=== PATIENT | male | born 1990 | race Caucasian/White ===

== ENCOUNTER 2017-05-30 11:46 | Emergency (ER) | payer MEDICAID ==
[2017-05-30 12:21] LABS: PLATELET COUNT 369 10^3/uL (150-400)
[2017-05-30] MEDS ORDERED: NS 1,000 ML IV ONE (12:34)
[2017-05-30] MEDS ORDERED: LORazepam 2 MG/ML INJ IVP ONE (12:34)
--- NOTE | 2017-05-30 12:36 | EDPHY ---
H & P Stated Complaint: l sided abd pain/acute this morning/nausea Time Seen by Provider: 05/30/17 12:30 HPI/ROS: CHIEF COMPLAINT: Epigastric and left upper quadrant abdominal pain HISTORY OF PRESENT ILLNESS: 26-year-old homeless male awoke this morning with acute sharp epigastric and left upper quadrant abdominal pain with nausea and vomiting. In effort to alleviate his symptoms he used IV methamphetamine which provided moderate relief, sufficient for him to walk to the hospital. He is still complaining of significant pain. No trauma. No testicular pain. No back or flank pain. No dyspnea. No melena or hematochezia REVIEW OF SYSTEMS: A ten point review of systems was performed and is negative with the exception of the items mentioned in the HPI PAST MEDICAL & SURGICAL HISTORY: No pertinent medical or surgical history SOCIAL HISTORY:Positive for IV methamphetamine and heroin use. Homelessness. PHYSICAL EXAM (Prior to examination, patient consented to physical exam, hands were washed and my usual and customary physical exam procedures followed) 1) GENERAL: Well-developed, well-nourished, alert and oriented. Appears uncomfortable. 2) HEAD: Normocephalic, atraumatic 3) HEENT: Pupils equal, round, reactive to light bilaterally. Sclera anicteric. [Nasopharynx, oropharynx, clear, no lesions. Dry mucous membranes 4) NECK: Full range of motion, no meningeal signs. 5) LUNGS: Clear auscultation bilaterally, no wheezes, no rhonchi, no retractions. 6) HEART: Regular rate and rhythm, no murmur, no heave, no gallop. 7) ABDOMEN: tender to palpation epigastrium and left upper quadrant, no focal tenderness, negative McBurney's, negative Daily's, negative Rovsing's, negative peritoneal sign, 8) MUSCULOSKELETAL: Moving all extremities, no focal areas of tenderness, no obvious trauma. No peripheral edema or discoloration. 9) BACK: No CVA tenderness, no midline vertebral tenderness, no fluctuance, no step-off, no obvious trauma, no visual or palpable abnormality. 10) SKIN: No rash, no petechiae. 11) : Normal male external genitalia bilateral testicles nontender no high- riding testicle, bilateral cremasteric reflex present and brisk. DIFFERENTIAL DIAGNOSIS: My differential diagnosis includes, but is not limited to, acute appendicitis, acute cholecystitis, bowel obstruction, acute pancreatitis, testicular torsion, gastritis. The patient understands that this diagnosis is provisional and can never be 100% accurate. This is a partial list of diagnoses considered. These considerations are based on history, physical exam, past history and reassessment. - Personal History Current Tetanus/Diphtheria Vaccine: Yes - Medical/Surgical History Hx Asthma: No Hx Chronic Respiratory Disease: No Hx Diabetes: No Hx Cardiac Disease: No Hx Renal Disease: No Hx Cirrhosis: No Hx Alcoholism: No Hx HIV/AIDS: No Hx Splenectomy or Spleen Trauma: No Other PMH: endocarditis - Social History Smoking Status: Current every day smoker Constitutional: Initial Vital Signs Temperature (C) 36.5 C 05/30/17 11:49 Heart Rate 67 05/30/17 11:49 Respiratory Rate 18 05/30/17 11:49 Blood Pressure 115/78 05/30/17 11:49 O2 Sat (%) 96 05/30/17 11:49 O2 Delivery Mode Room Air Allergies/Adverse Reactions: No Known Allergies Allergy (Verified 05/30/17 11:49) Home Medications: Medication Instructions Recorded Peg 3350/Na Sulf,Bicarb,Cl/KCl 1,000 ml PO ONCE #4000 ml 05/30/17 [Golytely (RX)] Medical Decision Making - Diagnostics Imaging Results: Imaging Impressions Abdomen CT 05/30/17 12:38 Impression: 1. Constipation with mild air distention of the cecum and hepatic flexure, without evidence of obstruction. 2. Small amount of free fluid in the pelvis, of unclear etiology. 3. Additional findings as above. Findings discussed with Caleb Linder, 05/30/2017 at 13:24. Images reviewed by myself ED Course/Re-evaluation: 12:35 p.m.: Will administer benzodiazepine, IV fluids he is noted to have an elevated BUN creatinine ratio. Care of patient under supervision of secondary supervising physician Dr Hines . 1:39 p.m.: Re-evaluation. Discussed his imaging results showing extensive constipation more than likely secondary to his history of chronic methamphetamine chronic care when abuse. At this time he is comfortable. Plan will be discharged with GoLYTELY. Recommend cessation of heroin and methamphetamine use. Usual customary abdominal precautions instructions provided. - Data Points Laboratory Results: Laboratory Results 05/30/17 12:10 05/30/17 12:10 05/30/17 05/30/17 05/30/17 12:13 12:10 12:10 WBC 11.90 10^3/uL H 10^3/uL (3.80-9.50) RBC 5.34 10^6/uL 10^6/uL (4.40-6.38) Hgb 15.7 g/dL g/dL (13.7-17.5) POC Hgb 16.3 gm/dL gm/dL (13.7-17.5) Hct 46.3 % % (40.0-51.0) POC Hct 48 % % (40-51) MCV 86.7 fL fL (81.5-99.8) MCH 29.4 pg pg (27.9-34.1) MCHC 33.9 g/dL g/dL (32.4-36.7) RDW 12.5 % % (11.5-15.2) Plt Count 369 10^3/uL 10^3/uL (150-400) MPV 9.3 fL fL (8.7-11.7) Neut % (Auto) 79.5 % H % (39.3-74.2) Lymph % (Auto) 12.9 % L % (15.0-45.0) Yancey % (Auto) 5.8 % % (4.5-13.0) Eos % (Auto) 1.2 % % (0.6-7.6) Baso % (Auto) 0.3 % % (0.3-1.7) Nucleat RBC Rel Count 0.0 % % (0.0-0.2) Absolute Neuts (auto) 9.48 10^3/uL H 10^3/uL (1.70-6.50) Absolute Lymphs (auto) 1.53 10^3/uL 10^3/uL (1.00-3.00) Absolute Monos (auto) 0.69 10^3/uL 10^3/uL (0.30-0.80) Absolute Eos (auto) 0.14 10^3/uL 10^3/uL (0.03-0.40) Absolute Basos (auto) 0.03 10^3/uL 10^3/uL (0.02-0.10) Absolute Nucleated RBC 0.00 10^3/uL 10^3/uL (0-0.01) Immature Gran % 0.3 % % (0.0-1.1) Immature Gran # 0.03 10^3/uL 10^3/uL (0.00-0.10) POC Sodium 143 mEq/L mEq/L (135-145) Sodium 143 mEq/L mEq/L (135-145) POC Potassium 4.2 mEq/L mEq/L (3.3-5.0) Potassium 4.6 mEq/L mEq/L (3.5-5.2) POC Chloride 105 mEq/L mEq/L (97-110) Chloride 105 mEq/L mEq/L (97-110) Carbon Dioxide 27 mEq/l mEq/l (22-31) Anion Gap 11 mEq/L mEq/L (8-16) POC BUN 25 mg/dL H mg/dL (7-23) BUN 25 mg/dL H mg/dL (7-23) Creatinine 0.7 mg/dL mg/dL (0.7-1.3) POC Creatinine 0.8 mg/dL mg/dL (0.7-1.3) Estimated GFR > 60 Glucose 102 mg/dL H mg/dL (70-100) POC Glucose 108 mg/dL H mg/dL (70-100) Calcium 9.8 mg/dL mg/dL (8.5-10.4) Total Bilirubin 0.7 mg/dL mg/dL (0.1-1.4) Conjugated Bilirubin 0.4 mg/dL mg/dL (0.0-0.5) Unconjugated Bilirubin 0.3 mg/dL mg/dL (0.0-1.1) AST 156 IU/L H IU/L (17-59) ALT 359 IU/L H IU/L (21-72) Alkaline Phosphatase 109 IU/L IU/L (38-126) Creatine Kinase 94 IU/L IU/L (0-224) Total Protein 7.8 g/dL g/dL (6.3-8.2) Albumin 4.3 g/dL g/dL (3.5-5.0) Lipase 48 IU/L IU/L (23-300) Medications Given: Discontinued Medications Sodium Chloride (Ns) 1,000 mls @ 0 mls/hr IV ONCE ONE PRN Reason: Wide Open Stop: 05/30/17 12:35 Last Admin: 05/30/17 12:40 Dose: 1,000 mls Lorazepam (Ativan Injection) 1 mg IVP EDNOW ONE Stop: 05/30/17 12:35 Last Admin: 05/30/17 12:42 Dose: Not Given Point of Care Test Results: 05/30/17 12:13 POC Sodium 143 POC Potassium 4.2 POC Chloride 105 POC BUN 25 H POC Creatinine 0.8 POC Glucose 108 H Departure - Departure Disposition: Home, Routine, Self-Care Clinical Impression: Methamphetamine abuse, Heroin abuse Constipation Qualifiers: Constipation type: unspecified constipation type Qualified Code(s): K59.00 - Constipation, unspecified Condition: Good Instructions: Constipation (ED) Additional Instructions: Please stop using methamphetamine and heroin. Referrals: [facility],. [Clinic] - 1-2 days without fail Prescriptions: Peg 3350/Na Sulf,Bicarb,Cl/KCl [Golytely (RX)] 1,000 ml PO ONCE #4000 ml
[2017-05-30 12:48] LABS: CREATINE KINASE 94 IU/L (0-224)
[2017-05-30] MEDS ORDERED: IOPAMIDOL (ISOVUE-300) 100 ML BTL ONE (13:00)
[2017-05-30 13:58] VITALS: BP 119/74
== END 2017-05-30 13:57 | disposition home or self-care (01) ==
DX: K59.00 Constipation, unspecified (principal); F15.10 Other stimulant abuse, uncomplicated; F11.10 Opioid abuse, uncomplicated; F17.200 Nicotine dependence, unspecified, uncomplicated; R11.2 Nausea with vomiting, unspecified
CPT/HCPCS: 82947-QW; J2060; Q9967

== ENCOUNTER 2018-02-25 12:09 | Inpatient (IN) | payer MEDICAID ==
[2018-02-25] MEDS ORDERED: NS 1,000 ML IV ONE ×2 (12:34→12:46)
[2018-02-25] MEDS ORDERED: PROMETHAZINE HCL 25 MG/ML INJ IVP ONE (12:46)
[2018-02-25] MEDS ORDERED: ONDANSETRON 4 MG/2 ML VIAL IVP ONE (12:46)
[2018-02-25] MEDS ORDERED: FAMOTIDINE 20 MG/NACL 50 ML IV ONE (12:46)
--- NOTE | 2018-02-25 12:52 | EDPHY ---
H & P Time Seen by Provider: 02/25/18 12:40 HPI/ROS: HPI Abdominal pain, nausea and vomiting. 27-year-old male by ambulance. He is currently homeless. He has a history of hepatitis C and heroin abuse. Last heroin use was earlier this morning. He presents to the emergency department with complaint of abdominal pain with nausea and vomiting worsening since last night. He reports multiple episodes of nonbilious, nonbloody vomiting. He describes his abdominal pain is mostly mid abdomen and epigastric. Last meal was sometime yesterday. He reports that he has had nothing to eat today. He denies diarrhea. Last bowel movement yesterday. No bloody or melenic stool. No previous abdominal surgical history. ROS: Constitutional: No fever, no chills. No weakness. Eyes: No discharge. No changes in vision. ENT: No sore throat. No nasal congestion or rhinorrhea. Respiratory: No cough. No shortness of breath. Cardiac: No chest pain, no palpitations. Gastrointestinal: As above. Genitourinary: No hematuria. No dysuria or increased frequency with urination. Musculoskeletal: No back pain. No neck pain. No myalgias or arthralgias. Skin: No rashes. Neurological: No headache. No focal weakness or altered sensation. Past medical history: Endocarditis, hepatitis-C, heroin abuse. Social history: Smoker. As above. No alcohol. Homeless. Physical Exam: General Appearance: Sleepy but easily arousable, he appears uncomfortable. Dirty in appearance. This patient is responding to questions appropriately and in full sentences. This patient appears well-hydrated and well-nourished. Eyes: Pupils equal and round and reactive to light at 2-1 mm bilaterally, no pallor or injection. No lid edema, erythema or injection. Respiratory: There are no retractions, lungs are clear to auscultation with good air movement bilaterally. Cardiovascular: Regular rate and rhythm. No murmur. Gastrointestinal: Abdomen is soft with moderate and vague tenderness throughout , most tender in the periumbilical area, no masses, bowel sounds normal. No focal tenderness at McBurney's point. No Daily sign. Neurological: Motor sensory function is grossly intact. Cranial nerves are normal. Skin: Warm and dry, no rashes. Musculoskeletal: Neck is supple and nontender. Extremities are symmetrical. All joints range without pain or impingement. Psychiatric: No agitation. No depression. Database: EKG: Imaging: CT abdomen and pelvis with IV contrast: Portal venous pneumatosis, diffuse bowel dilatation, pneumatosis intestinalis and gastric pneumatosis, diffuse bowel dilatation/diffuse small-bowel obstruction, no obvious transition point. Results were discussed with staff radiologist Dr. Young Guadarrama Procedures: Emergency department course: Triage vital signs reviewed, he is moderately hypertensive. Vital signs are otherwise normal. IV was placed. He was placed on a monitor. He had been given 4 mg of IV Zofran per EMS. After my evaluation he received another 4 mg of IV Zofran, 20 mg of IV Pepcid and 6.25 mg of IV Phenergan. He will be started on IV normal saline with 1 to 2 L to be given over the next 1 to 2 hours. His abdominal exam is concerning, possible etiologies obtained include appendicitis and perforated peptic ulcer. CT imaging will be obtained. Patient endorses. 2:40 p.m., general surgery paged. Patient re-evaluated, results of CT imaging and need for admission discussed with him. Repeat abdominal exam at this time, soft but diffusely tender throughout. He endorses admission. 3:00 p.m., spoke with on-call general surgeon Dr. Rolando Harris. He will see this patient in the emergency department shortly. The patient will be admitted under Dr. Harris's care. The patient will be given 500 mg of IV Flagyl in 2 g of IV Mefoxin in the emergency department. 3:40 p.m., the patient has become more sleepy. He will be given 0.4 mg of IV Narcan. He awoke after this medication and became mildly agitated. I have also discussed the patient's presentation to the emergency department in condition with Dr. Mccarty for the hospitalist service. Hospitalist service will consult for treatment of heroin withdrawal and any other medical issues. Patient was admitted under the care of Dr. Harris in stable condition. Differential Diagnosis: The differential diagnosis on this patient includes but is not limited to bowel obstruction, gastritis, pancreatitis, ulcerative gastritis, appendicitis, cholecystitis. This represents a partial list of diagnoses considered. These considerations are based on history, physical exam, past history, reassessment and diagnostic testing. Smoking Status: Current every day smoker Constitutional: Initial Vital Signs Temperature (C) 36.5 C 02/25/18 12:10 Heart Rate 84 02/25/18 12:10 Respiratory Rate 16 02/25/18 12:10 Blood Pressure 145/92 H 02/25/18 12:10 O2 Sat (%) 97 02/25/18 12:10 O2 Delivery Mode Room Air Allergies/Adverse Reactions: No Known Allergies Allergy (Verified 05/30/17 11:49) Home Medications: Medication Instructions Recorded NK [No Known Home Meds] 02/25/18 Medical Decision Making - Data Points Laboratory Results: Laboratory Results 02/26/18 05:29 02/26/18 05:29 Microbiology Results: MICROBIOLOGY 02/25/18 16:31 Blood Blood Culture - Preliminary 02/25/18 21:05 Blood Blood Culture - Preliminary Medications Given: Acetaminophen (Tylenol) 1,000 mg PO Q8H SARAH Stop: 08/24/18 15:44 Last Admin: 02/27/18 12:25 Dose: Not Given Al Hydroxide/Mg Hydroxide (Maalox Susp) 30 ml PO Q4HRS PRN PRN Reason: Indigestion Stop: 08/25/18 17:37 Last Admin: 02/26/18 22:48 Dose: 30 ml Chlordiazepoxide HCl (Librium) 25 - 50 mg PO TID PRN PRN Reason: Anxiety, Able to Take PO Stop: 08/24/18 17:29 Last Admin: 02/26/18 21:00 Dose: 25 mg Clonidine (Catapres) 0.1 mg PO Q4HRS SARAH Stop: 08/24/18 17:59 Last Admin: 02/27/18 12:25 Dose: Not Given Diazepam (Valium) 5 mg PO Q6HRS PRN PRN Reason: Anxiety, Able to Take PO Stop: 08/25/18 20:34 Last Admin: 02/27/18 05:01 Dose: 5 mg Enoxaparin Sodium (Lovenox) 40 mg SC DAILY SARAH Stop: 08/25/18 08:59 Last Admin: 02/27/18 12:24 Dose: 40 mg Hydroxyzine HCl (Hydroxyzine Hcl) 25 - 50 mg PO Q6HRS PRN PRN Reason: Anxiety Stop: 08/24/18 16:50 Last Admin: 02/26/18 15:25 Dose: 50 mg Lactated Ringer's (Lr) 1,000 mls @ 100 mls/hr IV CONT SARAH Stop: 08/24/18 15:59 Last Admin: 02/27/18 12:24 Dose: 1,000 mls Dexmedetomidine HCl 400 mcg/ (Sodium Chloride) 104 mls @ 0 mls/hr IV CONT SARAH; Titrate PRN Reason: Protocol Stop: 08/25/18 22:59 Last Admin: 02/27/18 12:24 Dose: 104 mls Piperacillin/Tazobactam/Dextrose (Zosyn 3.375 Gm (Premix)) 50 mls @ 100 mls/hr IV Q6H SARAH PRN Reason: Protocol Stop: 03/29/18 08:59 Last Admin: 02/27/18 09:23 Dose: 50 mls Ketorolac Tromethamine (Toradol) 30 mg IVP Q6HRS SARAH Stop: 03/02/18 17:59 Last Admin: 02/27/18 12:25 Dose: 30 mg Lorazepam (Ativan Injection) 2 mg IVP Q4HRS PRN PRN Reason: Anxiety Stop: 08/24/18 19:45 Last Admin: 02/27/18 04:21 Dose: 2 mg Ondansetron HCl (Zofran) 4 mg IVP Q4HRS PRN PRN Reason: Nausea/Vomiting, Can't Take PO Stop: 08/24/18 17:01 Last Admin: 02/27/18 05:05 Dose: 4 mg Pantoprazole Sodium (Protonix) 40 mg PO DAILY [facility] Stop: 08/26/18 08:59 Last Admin: 02/27/18 12:24 Dose: Not Given Discontinued Medications Chlordiazepoxide HCl (Librium) 25 mg PO TID PRN PRN Reason: Anxiety, Able to Take PO Stop: 08/24/18 17:29 Last Admin: 02/26/18 19:06 Dose: 25 mg Diazepam (Valium) 10 mg IVP ONCE ONE Stop: 02/26/18 15:31 Last Admin: 02/26/18 15:53 Dose: 10 mg Sodium Chloride (Ns) 1,000 mls @ 0 mls/hr IV EDNOW ONE; Wide Open PRN Reason: Protocol Stop: 02/25/18 12:35 Last Admin: 02/25/18 12:39 Dose: 1,000 mls Sodium Chloride (Ns) 1,000 mls @ 0 mls/hr IV EDNOW ONE; Wide Open PRN Reason: Protocol Stop: 02/25/18 12:47 Last Admin: 02/25/18 13:03 Dose: 1,000 mls Famotidine/Sodium Chloride (Pepcid 20 Mg (Premix)) 50 mls @ 200 mls/hr IV EDNOW ONE Stop: 02/25/18 13:00 Last Admin: 02/25/18 13:02 Dose: 50 mls Cefoxitin Sodium 2 gm/ Sodium (Chloride) 100 mls @ 200 mls/hr IV EDNOW ONE PRN Reason: Protocol Stop: 02/25/18 16:06 Last Admin: 02/25/18 16:38 Dose: 100 mls Metronidazole/Sodium Chloride (Flagyl 500 Mg (Premix)) 100 mls @ 100 mls/hr IV EDNOW ONE PRN Reason: Protocol Stop: 02/25/18 16:36 Last Admin: 02/25/18 15:53 Dose: 100 mls Sodium Chloride (Ns) 500 mls @ 0 mls/hr IV ONCE ONE Stop: 02/26/18 07:01 Last Admin: 02/26/18 06:49 Dose: 500 mls Lorazepam (Ativan Injection) 1 mg IVP Q4HRS PRN PRN Reason: Anxiety, Unable to Take PO Stop: 08/24/18 19:45 Last Admin: 02/26/18 22:23 Dose: 1 mg Naloxone HCl (Narcan) 0.4 mg IVP EDNOW ONE Stop: 02/25/18 15:41 Last Admin: 02/25/18 15:52 Dose: 0.4 mg Ondansetron HCl (Zofran) 4 mg IVP EDNOW ONE Stop: 02/25/18 12:47 Last Admin: 02/25/18 13:03 Dose: 4 mg Pantoprazole Sodium (Protonix) 40 mg IVP DAILY SARAH Stop: 08/24/18 15:59 Last Admin: 02/26/18 09:04 Dose: 40 mg Promethazine HCl (Phenergan) 6.25 mg IVP EDNOW ONE Stop: 02/25/18 12:47 Last Admin: 02/25/18 13:03 Dose: 6.25 mg Point of Care Test Results: Chemistry 02/25/18 15:08 POC Sodium 143 mEq/L mEq/L (135-145) POC Potassium 3.7 mEq/L mEq/L (3.3-5.0) POC Chloride 105 mEq/L mEq/L (97-110) POC BUN 20 mg/dL mg/dL (7-23) POC Creatinine 0.7 mg/dL mg/dL (0.7-1.3) POC Glucose 130 mg/dL H mg/dL (70-100) ISTAT H&H 02/25/18 15:08 POC Hgb 15.6 gm/dL gm/dL (13.7-17.5) POC Hct 46 % % (40-51) Departure - Departure Disposition: [facility] Inpatient Acute Clinical Impression: Abdominal pain, Nausea and vomiting, Small bowel obstruction, Heroin abuse, Transaminitis, Pneumatosis of intestines Condition: Fair
[2018-02-25] MEDS ORDERED: IOPAMIDOL (ISOVUE 370) 100 ML BTL IV ONE (13:29)
[2018-02-25 15:17] LABS: PLATELET COUNT 300 10^3/uL (150-400)
[2018-02-25] MEDS ORDERED: cefOXitin SODIUM 2 GM in NS 100 ML IV ONE (15:37)
[2018-02-25] MEDS ORDERED: NALOXONE HCL 0.4 MG/ML INJ IVP ONE (15:40)
--- NOTE | 2018-02-25 16:37 | GHP ---
DATE OF ADMISSION: 02/25/2018 ADMITTING DIAGNOSES: 1. Pneumatosis intestinalis and portal venous air. 2. Multiple drug abuse. HISTORY OF PRESENT ILLNESS: The patient is a 27-year-old street person. He presents to the ER today complaining of abdominal pain. CAT scan shows the above-mentioned findings. He states that he is a 0.5 g daily heroin user, but only used 1 cotton today. He explains that users will filter their cooked heroin through a cotton and then save the cotton against emergencies in the future by putting it in a syringe. This will give them approximately 16th of their usual dose. He states he also uses cocaine, methamphetamines, benzodiazepine, and Klonopin. SOCIAL HISTORY: He has smoked since age 14 and at a peak of 1 pack per day. He does not drink. ALLERGIES: He has no known drug allergies. PAST SURGICAL HISTORY: His only surgery has been bilateral myringotomy tubes. PAST MEDICAL HISTORY: He has no history of rheumatic fever, tuberculosis, or hepatitis. He is positive for hepatitis C. REVIEW OF SYSTEMS: He has had 2 concussions in the past. He was hospitalized for endocarditis approximately 2 years ago. There are no limits on his activities. No history of steroid use. PHYSICAL EXAMINATION: VITAL SIGNS: Blood pressure is 118/86 at 88. Room air saturations are 96%. GENERAL: He is minimally responsive. A dose of Narcan is given and he becomes much more interactive. He responds to questions. HEENT: His skull is normocephalic. NEUROLOGIC: He is moving all extremities without focal lateralizing findings. NECK: Nontender. LYMPHATIC: I do not detect any axillary, cervical, supraclavicular, or inguinal lymphadenopathy. LUNGS: Clear to auscultation. BACK: Unremarkable. CARDIAC: Does not show any murmurs at this point. ABDOMEN: Hypoactive bowel sounds. IT IS NOT TENDER TO PALPATION. EXTREMITIES: Unremarkable. DATA: White count is elevated to 16,000, his neutrophil count is 94%, platelet count is 300, hematocrit is 45. His chemistries show a glucose of 130. His AST is 119, his ALT is 205. He has had an abdominal CT, which has the above mentioned findings. IMPRESSION: Patient with pneumatosis, probably secondary to his narcotic use and is without signs of acute abdomen, though this examination is compromised by his narcotic use. Re-examination will be undertaken. I do not see free air at this point, which would prompt abdominal exploration. Intravenous antibiotics will be used. I will ask Medicine to consult regarding withdrawal from drugs of abuse. Blood cultures and a chest X-ray will be obtained. /[id number]/MODL MTDD
[2018-02-25] MEDS ORDERED: LOPERAMIDE HCL 2 MG CAP PO PRN (16:51)
[2018-02-25] MEDS ORDERED: LORazepam 1 MG TAB PO PRN (16:51)
[2018-02-25] MEDS ORDERED: PROMETHAZINE HCL 25 MG/ML INJ IVP PRN (17:02)
--- NOTE | 2018-02-25 17:06 | PDGENHP ---
<Genoveva Frias - Last Filed: 02/25/18 17:34> History and Physical - Chief Complaint Abdominal pain, nausea, vomiting - History of Present Illness This is a 27 y/o male with history of hepatitis C and IV drug use presenting with abdominal pain, nausea, and vomiting that began yesterday. The hospital medicine team has been asked to consult the pt for his IV drug use and manage his withdrawal. Dr. Eric Harris is admitting physician. He arrived via ambulance and reports abdominal pain, nausea and vomiting worsening since yesterday. Endorses multiple episodes of vomiting. Denies hematemesis. Denies diarrhea, constipation, hematochezia or melena. He has not had anything to eat today and his last meal was yesterday. Denies chest pains, SOB. He last used IV heroin earlier today. He usually uses heroin ( approximately 1/2-1 gram each time) but occasionally uses IV methamphetamine. Abdominal CT scan reveals multiple concerns of portal vein pneumatosis, diffuse bowel dilatation, pneumatosis intestinalis, gastric pneumatosis, small bowel obstruction. Throughout the pt's admittance into the emergency room, he became increasingly more somnolent and given 0.4 mg of Narcan. I evaluated the pt after he received this. He was restless, moving his head and legs and saying he is withdrawing. He was unkempt in appearance, no respiratory distress, did not see any tremors or diaphoresis. For the majority of the evaluation, his eyes remained closed. On occasion, he would open one eye. He responds to questions appropriately and speaks in full sentences. Past Medical/Surgical history 1. Hepatitis C 2. IV drug use including methamphetamine and heroin 3. Endocarditis Social 1. Denies alcohol. Smokes cigarettes. IV drug use of heroin and methamphetamine. 2. Homelessness History Information - Allergies/Home Medication List Allergies/Adverse Reactions: No Known Allergies Allergy (Verified 05/30/17 11:49) Home Medications: NK [No Known Home Meds] 02/25/18 [Last Taken Unknown] I have personally reviewed and updated: family history, medical history, social history, surgical history Past Medical History: See HPI list - Surgical History Additional surgical history: See HPI list - Family History Positive for: non-pertinent - Social History Smoking Status: Current every day smoker Alcohol Use: None Drug Use: Heroin, Other (Meth) Review of Systems Review of Systems: ROS: 10pt was reviewed & negative except for what was stated in HPI & below Constitutional: Reports: malaise EENMT: Reports: no symptoms Cardiac: Reports: no symptoms Respiratory: Reports: no symptoms Gastrointestinal: Reports: vomitting, abdominal pain, nausea Genitourinary: Reports: no symptoms Muscolosketal: Reports: no symptoms Skin: Reports: no symptoms Neurological: Reports: no symptoms Hematologic/Lymphatic: Reports: no symptoms Immunologic/Allergy: Reports: no symptoms Physical Exam Physical Exam: Lab data and imaging reviewed Temp Pulse Resp BP Pulse Ox 36.5 C 88 18 141/87 H 96 02/25/18 12:10 02/25/18 16:54 02/25/18 16:54 02/25/18 16:54 02/25/18 16:54 Constitutional: uncomfortable, unkempt Eyes: PERRL, anicteric sclera, EOMI Ears, Nose, Mouth, Throat: moist mucous membranes, hearing normal, ears appear normal, no oral mucosal ulcers Cardiovascular: regular rate and rhythym, no murmur, rub, or gallop, No edema Peripheral Pulses: 2+: dorsalis-pedis (R) (Radial 2+), dorsalis-pedis (L) ( Radial 2+) Respiratory: no respiratory distress, no rales or rhonchi, clear to auscultation Gastrointestinal: normoactive bowel sounds, soft, non-tender abdomen, no palpable masses Genitourinary: no bladder fullness, no bladder tenderness Skin: warm, normal color, no rashes or abrasions, no fluctuance, no induration, No mottled Musculoskeletal: full muscle strength, no muscle tenderness, normal joint ROM, no joint effusions Neurologic: AAOx3, sensation intact bilaterally, CN II-XII Intact Psychiatric: not encephalopathic, thought process linear, anxious Lymph, Heme, Immunologic: no cervical LAD, no supraclavicular LAD Lab Data & Imaging Review 02/25/18 15:04 02/25/18 12:25 WBC 16.10 10^3/uL (3.80-9.50) H 02/25/18 15:04 RBC 5.25 10^6/uL (4.40-6.38) 02/25/18 15:04 Hgb 15.3 g/dL (13.7-17.5) 02/25/18 15:04 POC Hgb 15.6 gm/dL (13.7-17.5) 02/25/18 15:08 Hct 45.5 % (40.0-51.0) 02/25/18 15:04 POC Hct 46 % (40-51) 02/25/18 15:08 MCV 86.7 fL (81.5-99.8) 02/25/18 15:04 MCH 29.1 pg (27.9-34.1) 02/25/18 15:04 MCHC 33.6 g/dL (32.4-36.7) 02/25/18 15:04 RDW 13.2 % (11.5-15.2) 02/25/18 15:04 Plt Count 300 10^3/uL (150-400) 02/25/18 15:04 MPV 9.1 fL (8.7-11.7) 02/25/18 15:04 Neut % (Auto) 94.0 % (39.3-74.2) H 02/25/18 15:04 Lymph % (Auto) 2.4 % (15.0-45.0) L 02/25/18 15:04 Carlisle % (Auto) 3.1 % (4.5-13.0) L 02/25/18 15:04 Eos % (Auto) 0.0 % (0.6-7.6) L 02/25/18 15:04 Baso % (Auto) 0.1 % (0.3-1.7) L 02/25/18 15:04 Nucleat RBC Rel Count 0.0 % (0.0-0.2) 02/25/18 15:04 Absolute Neuts (auto) 15.13 10^3/uL (1.70-6.50) H 02/25/18 15:04 Absolute Lymphs (auto) 0.39 10^3/uL (1.00-3.00) L 02/25/18 15:04 Absolute Monos (auto) 0.50 10^3/uL (0.30-0.80) 02/25/18 15:04 Absolute Eos (auto) 0.00 10^3/uL (0.03-0.40) L 02/25/18 15:04 Absolute Basos (auto) 0.02 10^3/uL (0.02-0.10) 02/25/18 15:04 Absolute Nucleated RBC 0.00 10^3/uL (0-0.01) 02/25/18 15:04 Immature Gran % 0.4 % (0.0-1.1) 02/25/18 15:04 Immature Gran # 0.06 10^3/uL (0.00-0.10) 02/25/18 15:04 RBC/WBC/PLT Morphology TNP 02/25/18 15:04 Platelet Estimate TNP 02/25/18 15:04 VBG Lactic Acid 2.1 mmol/L (0.7-2.1) 02/25/18 Unknown POC Sodium 143 mEq/L (135-145) 02/25/18 15:08 Sodium 139 mEq/L (135-145) 02/25/18 12:25 POC Potassium 3.7 mEq/L (3.3-5.0) 02/25/18 15:08 Potassium 4.2 mEq/L (3.5-5.2) 02/25/18 12:25 POC Chloride 105 mEq/L (97-110) 02/25/18 15:08 Chloride 108 mEq/L (97-110) 02/25/18 12:25 Carbon Dioxide 19 mEq/l (22-31) L 02/25/18 12:25 Anion Gap 12 mEq/L (6-14) 02/25/18 12:25 POC BUN 20 mg/dL (7-23) 02/25/18 15:08 BUN 22 mg/dL (7-23) 02/25/18 12:25 Creatinine 0.7 mg/dL (0.7-1.3) 02/25/18 12:25 POC Creatinine 0.7 mg/dL (0.7-1.3) 02/25/18 15:08 Estimated GFR > 60 02/25/18 12:25 Glucose 144 mg/dL (70-100) H 02/25/18 12:25 POC Glucose 130 mg/dL (70-100) H 02/25/18 15:08 Calcium 9.1 mg/dL (8.5-10.4) 02/25/18 12:25 Total Bilirubin 1.0 mg/dL (0.1-1.4) 02/25/18 12:25 Conjugated Bilirubin 0.4 mg/dL (0.0-0.5) 02/25/18 12:25 Unconjugated Bilirubin 0.6 mg/dL (0.0-1.1) 02/25/18 12:25 AST 119 IU/L (17-59) H 02/25/18 12:25 ALT 205 IU/L (21-72) H 02/25/18 12:25 Alkaline Phosphatase 101 IU/L (38-126) 02/25/18 12:25 Total Protein 7.2 g/dL (6.3-8.2) 02/25/18 12:25 Albumin 4.1 g/dL (3.5-5.0) 02/25/18 12:25 Lipase 48 IU/L (23-300) 02/25/18 12:25 Assessment & Plan Plan: This is a 27 y/o male with history of hepatitis C, IV drug abuse, and endocarditis presenting with acute abdominal pain, nausea, and vomiting. Hospital medicine consulting for his withdrawal. IV drug abuse including heroin -Q4H opiate withdrawal scale -Ativan, clonidine, Atarax PRN for anxiety -Zofran and Phenergan PRN for nausea -Imodium PRN for diarrhea -Monitor respiratory depression, continuous pulse ox -Notify on-call physician should Narcan be required Diet: NPO Code: Full Dispo: Admit to obs <Javon Mccarty - Last Filed: 02/25/18 18:54> History and Physical - History of Present Illness Review of Systems Review of Systems: Physical Exam Physical Exam: Temp Pulse Resp BP Pulse Ox 38.1 C 78 16 138/79 H 100 02/25/18 17:04 02/25/18 17:04 02/25/18 17:04 02/25/18 17:04 02/25/18 17:04 Lab Data & Imaging Review 02/25/18 15:04 02/25/18 12:25 WBC 16.10 10^3/uL (3.80-9.50) H 02/25/18 15:04 RBC 5.25 10^6/uL (4.40-6.38) 02/25/18 15:04 Hgb 15.3 g/dL (13.7-17.5) 02/25/18 15:04 POC Hgb 15.6 gm/dL (13.7-17.5) 02/25/18 15:08 Hct 45.5 % (40.0-51.0) 02/25/18 15:04 POC Hct 46 % (40-51) 02/25/18 15:08 MCV 86.7 fL (81.5-99.8) 02/25/18 15:04 MCH 29.1 pg (27.9-34.1) 02/25/18 15:04 MCHC 33.6 g/dL (32.4-36.7) 02/25/18 15:04 RDW 13.2 % (11.5-15.2) 02/25/18 15:04 Plt Count 300 10^3/uL (150-400) 02/25/18 15:04 MPV 9.1 fL (8.7-11.7) 02/25/18 15:04 Neut % (Auto) 94.0 % (39.3-74.2) H 02/25/18 15:04 Lymph % (Auto) 2.4 % (15.0-45.0) L 02/25/18 15:04 Carlisle % (Auto) 3.1 % (4.5-13.0) L 02/25/18 15:04 Eos % (Auto) 0.0 % (0.6-7.6) L 02/25/18 15:04 Baso % (Auto) 0.1 % (0.3-1.7) L 02/25/18 15:04 Nucleat RBC Rel Count 0.0 % (0.0-0.2) 02/25/18 15:04 Absolute Neuts (auto) 15.13 10^3/uL (1.70-6.50) H 02/25/18 15:04 Absolute Lymphs (auto) 0.39 10^3/uL (1.00-3.00) L 02/25/18 15:04 Absolute Monos (auto) 0.50 10^3/uL (0.30-0.80) 02/25/18 15:04 Absolute Eos (auto) 0.00 10^3/uL (0.03-0.40) L 02/25/18 15:04 Absolute Basos (auto) 0.02 10^3/uL (0.02-0.10) 02/25/18 15:04 Absolute Nucleated RBC 0.00 10^3/uL (0-0.01) 02/25/18 15:04 Immature Gran % 0.4 % (0.0-1.1) 02/25/18 15:04 Immature Gran # 0.06 10^3/uL (0.00-0.10) 02/25/18 15:04 RBC/WBC/PLT Morphology TNP 02/25/18 15:04 Platelet Estimate TNP 02/25/18 15:04 VBG Lactic Acid 2.1 mmol/L (0.7-2.1) 02/25/18 Unknown POC Sodium 143 mEq/L (135-145) 02/25/18 15:08 Sodium 139 mEq/L (135-145) 02/25/18 12:25 POC Potassium 3.7 mEq/L (3.3-5.0) 02/25/18 15:08 Potassium 4.2 mEq/L (3.5-5.2) 02/25/18 12:25 POC Chloride 105 mEq/L (97-110) 02/25/18 15:08 Chloride 108 mEq/L (97-110) 02/25/18 12:25 Carbon Dioxide 19 mEq/l (22-31) L 02/25/18 12:25 Anion Gap 12 mEq/L (6-14) 02/25/18 12:25 POC BUN 20 mg/dL (7-23) 02/25/18 15:08 BUN 22 mg/dL (7-23) 02/25/18 12:25 Creatinine 0.7 mg/dL (0.7-1.3) 02/25/18 12:25 POC Creatinine 0.7 mg/dL (0.7-1.3) 02/25/18 15:08 Estimated GFR > 60 02/25/18 12:25 Glucose 144 mg/dL (70-100) H 02/25/18 12:25 POC Glucose 130 mg/dL (70-100) H 02/25/18 15:08 Calcium 9.1 mg/dL (8.5-10.4) 02/25/18 12:25 Total Bilirubin 1.0 mg/dL (0.1-1.4) 02/25/18 12:25 Conjugated Bilirubin 0.4 mg/dL (0.0-0.5) 02/25/18 12:25 Unconjugated Bilirubin 0.6 mg/dL (0.0-1.1) 02/25/18 12:25 AST 119 IU/L (17-59) H 02/25/18 12:25 ALT 205 IU/L (21-72) H 02/25/18 12:25 Alkaline Phosphatase 101 IU/L (38-126) 02/25/18 12:25 Total Protein 7.2 g/dL (6.3-8.2) 02/25/18 12:25 Albumin 4.1 g/dL (3.5-5.0) 02/25/18 12:25 Lipase 48 IU/L (23-300) 02/25/18 12:25 Assessment & Plan Assessment: Abdominal pain (Acute) Heroin abuse (Acute) Nausea and vomiting (Acute) Pneumatosis of intestines (Acute) Small bowel obstruction (Acute) Transaminitis (Acute) Plan: I have reviewed the chart, personally examined, and discussed case with Genoveva Frias NP and agree with her plan as outlined above. Please see separate note for additional details.
[2018-02-25] MEDS: LR 1,000 ML IV SCH (17:23)
[2018-02-25] MEDS ORDERED: LORazepam 2 MG/ML INJ IVP PRN ×2 (17:30→19:46)
[2018-02-25] MEDS: PANTOPRAZOLE SODIUM 40 MG VIAL IVP SCH (17:31)
[2018-02-25] MEDS: ACETAMINOPHEN 500 MG TAB PO SCH (17:31)
--- NOTE | 2018-02-25 17:36 | HOSPPROG ---
Hospitalist Progress Note Assessment/Plan: Chart reviewed, personally examined, and case discussed with Genoveva Frias PRESS OPERATOR ASSISTANT. I agree with her assessment and plan with the following exceptions: Briefly, 27yo M with polysubstance use (IV heroin, meth, cocaine) presents with abdominal pain. Last used heroin this AM. Mild leukocytosis and AST/ALT elevation, lactate normal. CT shows markedly distended stomach and proximal small bowel with pneumatosis and portal venous gas. No identified focal transition point. Non-peritoneal abdomen, but this may have been masked by his opioid use prior to arrival. He was given 0.4mg IV narcan in the ED and is now restless, agitated. 1. Opioid dependency and now withdrawal: Will treat symptomatically with benzos (librium), clonidine, imodium, antihistamines, anti-emetics. COWS protocol. Not candidate for long-acting opioid such as buprenorphine or methadone with active GI issues. 2. Pneumatosis intestinalis, portal venous gas: Suspect related to small bowel pseudo-obstruction from heroin use. Dr Harris is following, no emergent need for surgery. Agree with antibiotics for now, follow blood cultures. 3. Transaminitis: Either related to above vs hep C. Down from prior. Monitor. 4. IVDU: Substance abuse counseling when appropriate. 5. H/o hepatitis C: No cirrhosis on imaging. Untreated. 6. Leukocytosis: Reactive in setting of above. Thank you for this consult, we will continue to follow along. Objective: Vital Signs Temp Pulse Resp BP Pulse Ox 38.1 C 78 16 138/79 H 100 02/25/18 17:04 02/25/18 17:04 02/25/18 17:04 02/25/18 17:04 02/25/18 17:04 02/24/18 02/25/18 02/26/18 05:59 05:59 05:59 Intake Total 1200 Balance 1200 ICD10 Worksheet Patient Problems: Problems Problem Status Onset Abdominal pain Acute Heroin abuse Acute Nausea and vomiting Acute Pneumatosis of intestines Acute Small bowel obstruction Acute Transaminitis Acute
[2018-02-25] MEDS: chlordiazePOXIDE 25 MG CAP PO PRN (18:12)
[2018-02-25] MEDS: KETOROLAC 30 MG/1 ML SDV IVP SCH (18:12)
[2018-02-25] MEDS ORDERED: DIAZEPAM 5 MG TAB PO PRN (18:55)
[2018-02-25] MEDS: ONDANSETRON 4 MG/2 ML VIAL IVP PRN (19:01)
[2018-02-26] MEDS: ACETAMINOPHEN 500 MG TAB PO SCH ×4 (00:07→23:23)
[2018-02-26] MEDS: KETOROLAC 30 MG/1 ML SDV IVP SCH ×5 (00:08→23:24)
[2018-02-26] MEDS: LR 1,000 ML IV SCH (03:03)
[2018-02-26 05:44] LABS: PLATELET COUNT 265 10^3/uL (150-400)
[2018-02-26] MEDS: chlordiazePOXIDE 25 MG CAP PO PRN ×3 (05:47→19:06)
[2018-02-26] MEDS ORDERED: NS 500 ML IV ONE (07:00)
[2018-02-26] MEDS ORDERED: NS 500 ML IV SCH (07:00)
[2018-02-26] MEDS ORDERED: BUPIVACAINE/DEXTROSE 7.5MG/ML 2 ML SPINAL AMP SP ONE (07:34)
[2018-02-26] MEDS ORDERED: PROPOFOL/EMULSION 500 MG/50 ML BOTTLE IV ONE ×3 (07:36→09:10)
[2018-02-26] MEDS ORDERED: fentaNYL 100 MCG/2 ML INJ ONE (08:18)
[2018-02-26] MEDS ORDERED: ONDANSETRON 4 MG/2 ML VIAL ONE (08:21)
[2018-02-26] MEDS ORDERED: PHENYLEPHRINE HCL 100 MCG/ML SYR ONE (08:25)
[2018-02-26] MEDS: ENOXAPARIN 40 MG/0.4 ML SYR SC SCH (09:04)
[2018-02-26] MEDS: PANTOPRAZOLE SODIUM 40 MG VIAL IVP SCH (09:04)
[2018-02-26] MEDS: hydrOXYzine HCL 25 MG TAB PO PRN ×2 (09:09→15:25)
--- NOTE | 2018-02-26 11:35 | ASMTCMCOM ---
CM Note CM Note Notes: CM reviewed pt's chart for d/c palnning. pt is a 27y/o male with polysubstance use (IV heroin, meth and cocaine). He has a hx of hep C. He presented, via ambulance, with abdominal pain which may be due to small bowel pseudo-obstruction caused by his heroin use. He was depenedent on opioids and is now being treated for withdrawl. Pt is homleess. CM spoke with pt about [facility] [employer]. Pt has not used this and does not want to. He also does not want to sleep in the [facility]. He declined help in accessing either. [facility] at d[facility]c. D/C Plan: Independent/Homeless Date Signed: 02/26/2018 11:34 AM Electronically Signed By:Fay Calloway
--- NOTE | 2018-02-26 14:46 | SOAPPROG ---
SOAP Progress Note Assessment/Plan: PAD#1 02/26/18 14:43 Assessment: Abdomen soft, VSS, LFTs coming down. Do not feel that he has an acute abdomen. He does have norovirus Plan: I spoke with Dr. Zambrano who agrees to accept in transfer. Issues remain are the norovirus and multiple substance abuse. Subjective: No abdominal pain, He has been having diarrhea Objective: Vital Signs Temp Pulse Resp BP Pulse Ox 36.7 C 82 18 121/80 H 99 02/26/18 12:00 02/26/18 12:00 02/26/18 12:00 02/26/18 12:00 02/26/18 12:00 Microbiology 02/25/18 19:41 Gastrointestinal Tract Panel (PCR) - Final Stool Norovirus Gi/Gii Laboratory Results 02/26/18 05:29 02/26/18 05:29 02/25/18 02/26/18 02/27/18 05:59 05:59 05:59 Intake Total 2400 Output Total 1100 475 Balance 1300 -475 - Time Spent With Patient Time Spent With Patient: 15 Physical Exam - Physical Exam General Appearance: alert, no apparent distress Respiratory: lungs clear, normal breath sounds Cardiac/Chest: regular rate, rhythm Abdomen: normal bowel sounds, non-tender, soft ICD10 Worksheet Patient Problems: Problems Problem Status Onset Abdominal pain Acute Heroin abuse Acute Nausea and vomiting Acute Pneumatosis of intestines Acute Small bowel obstruction Acute Transaminitis Acute
[2018-02-26] MEDS ORDERED: DIAZEPAM 5 MG/ML 1 ML SYR IVP ONE (15:30)
--- NOTE | 2018-02-26 16:22 | HOSPPROG ---
Hospitalist Progress Note Assessment/Plan: 1. Opioid dependency and now withdrawal: - Treat symptomatically with benzos (librium), clonidine, imodium, antihistamines, anti-emetics. COWS protocol. - Not candidate for long-acting opioid such as buprenorphine or methadone with active GI issues. 2. Pneumatosis intestinalis, portal venous gas - Suspect related to small bowel pseudo-obstruction from heroin use, norovirus - Dr Harris is following, no need for surgery, has transferred to Hospitalist service - Due to viral syndrome, antibiotics have been discontinued 3. Transaminitis: - Either related to above vs hep C. Down from prior. Monitor. 4. IVDU: - Substance abuse counseling when appropriate. 5. H/o hepatitis C: - No cirrhosis on imaging. Untreated. 6. Leukocytosis: - Reactive in setting of above. Subjective: Patient reports increased appetite this afternoon Objective: Vital Signs Temp Pulse Resp BP Pulse Ox 36.7 C 82 18 121/80 H 99 02/26/18 12:00 02/26/18 12:00 02/26/18 12:00 02/26/18 12:00 02/26/18 12:00 Microbiology 02/25/18 19:41 Gastrointestinal Tract Panel (PCR) - Final Stool Norovirus Gi/Gii Laboratory Results 02/26/18 05:29 02/26/18 05:29 02/25/18 02/26/18 02/27/18 05:59 05:59 05:59 Intake Total 2400 Output Total 1100 475 Balance 1300 -475 - Physical Exam Constitutional: unkempt Eyes: PERRL Ears, Nose, Mouth, Throat: moist mucous membranes Cardiovascular: regular rate and rhythym Respiratory: no respiratory distress Gastrointestinal: soft, non-tender abdomen, No distension Skin: warm Musculoskeletal: full muscle strength Neurologic: AAOx3 Psychiatric: interacting appropriately ICD10 Worksheet Patient Problems: Problems Problem Status Onset Abdominal pain Acute Heroin abuse Acute Nausea and vomiting Acute Pneumatosis of intestines Acute Small bowel obstruction Acute Transaminitis Acute
--- NOTE | 2018-02-26 17:19 | PDMN ---
Medical Necessity Medical necessity: [facility] M595 Substance Related Disorders: 27 yo presents w/ abd pain w/ CT showing pneumatosis intestinalis and portal venous air. General surg initially following for OBS but pt w/ sig hx IV drug use including heroin, meth, cocain, benzos and klonopin and started to w/d. Pt cleared by surg but pt developed opioid w/d and lab work came back with +norovirus, incontinent of stool, COWS protocol started for w/d, pt remains on IVF, medications for opioid w/d. BC pending. Hx concussion x2, endocarditis approx. 2 ya, hep C. Change to IP status 02/26/18@1541 per MD order for management of opiate w/d and gi virus.
[2018-02-26] MEDS: ONDANSETRON 4 MG/2 ML VIAL IVP PRN ×2 (17:23→23:24)
[2018-02-26] MEDS: MAG HYDROX/AL HYDROX/SIMETH 30 ML UDCUP PO PRN ×2 (18:08→22:48)
[2018-02-26] MEDS ORDERED: chlordiazePOXIDE 25 MG CAP PO PRN (20:35)
[2018-02-26] MEDS: DIAZEPAM 5 MG TAB PO PRN (21:02)
[2018-02-26] MEDS: DEXMEDETOMIDINE HCL 400 MCG in NS 100 ML IV SCH (23:09)
[2018-02-27] MEDS: LORazepam 2 MG/ML INJ IVP PRN ×2 (00:06→04:21)
[2018-02-27] MEDS: DIAZEPAM 5 MG TAB PO PRN ×2 (02:55→05:01)
[2018-02-27] MEDS: ONDANSETRON 4 MG/2 ML VIAL IVP PRN (05:05)
[2018-02-27] MEDS: KETOROLAC 30 MG/1 ML SDV IVP SCH ×3 (05:39→18:12)
[2018-02-27] MEDS: DEXMEDETOMIDINE HCL 400 MCG in NS 100 ML IV SCH ×3 (05:44→20:46)
[2018-02-27 09:09] LABS: PLATELET COUNT 225 10^3/uL (150-400)
[2018-02-27] MEDS: PIPERACILLIN/TAZO 3.375 GM/DEX 50 ML IV SCH ×3 (09:23→22:01)
[2018-02-27] MEDS: PANTOPRAZOLE SODIUM 40 MG TAB PO SCH (12:24)
[2018-02-27] MEDS: ENOXAPARIN 40 MG/0.4 ML SYR SC SCH (12:24)
[2018-02-27] MEDS: LR 1,000 ML IV SCH ×2 (12:24→22:02)
[2018-02-27] MEDS: ACETAMINOPHEN 500 MG TAB PO SCH ×2 (12:25→16:59)
--- NOTE | 2018-02-27 12:28 | HOSPPROG ---
Hospitalist Progress Note Assessment/Plan: 1. Opioid dependency and now withdrawal: - Was agitated overnight, requiring transfer to ICU - Started on Precidex gtt and Ativan 2 mg 2 hours with patient resting calmly this AM - Continue Precidex infusion, wean as tolerated over the course of today - Continue to treat withdrawal symptoms with benzos (Librium PO/Ativan IV), clonidine, imodium, antihistamines, anti-emetics. COWS protocol. - Not candidate for long-acting opioid at this time such as buprenorphine or methadone with active GI issues. 2. Sepsis - Meeting SIRS criteria with Tachypnea, Fever, Leukocytosis - Norovirus positive on admission - CXR performed overnight which showed RLL PNA, will start on IV Zosyn for now - LA 2.0 this AM, continue IVF and monitor 3. Pneumatosis intestinalis, portal venous gas - Seen on CT on admission - Suspect related to small bowel pseudo-obstruction from heroin use, norovirus - Dr Harris consulted, no surgical intervention recommended - CT A/P ordered overnight due to fever and complaint of worsening abdominal pain, improved this morning, will f/u results 4. Transaminitis: - Either related to above vs hep C. Down from prior. Monitor. 4. IVDU: - Substance abuse counseling when appropriate. 5. H/o hepatitis C: - No cirrhosis on imaging. Untreated. FEN: IVF, Regular DVT PPx: Lovenox Code: FULL Dispo: Pending clinical course Subjective: Patient sleeping comfortably this AM Objective: Vital Signs Temp Pulse Resp BP Pulse Ox 36.5 C 75 36 H 107/52 L 98 02/27/18 12:00 02/27/18 12:00 02/27/18 12:00 02/27/18 12:00 02/27/18 12:00 Laboratory Results 02/27/18 08:59 02/27/18 08:59 02/26/18 02/27/18 02/28/18 05:59 05:59 05:59 Intake Total 1653.5 Output Total 600 Balance 1053.5 - Physical Exam Constitutional: no apparent distress Eyes: PERRL Ears, Nose, Mouth, Throat: moist mucous membranes Cardiovascular: regular rate and rhythym Respiratory: reduced air movement, No respiratory distress Gastrointestinal: tenderness, No guarding, No rebound, No distension Skin: warm Neurologic: No AAOx3 Psychiatric: No interacting appropriately ICD10 Worksheet Patient Problems: Problems Problem Status Onset Abdominal pain Acute Heroin abuse Acute Nausea and vomiting Acute Pneumatosis of intestines Acute Small bowel obstruction Acute Transaminitis Acute
[2018-02-27] MEDS ORDERED: ALTEPLASE 2 MG VIAL IVP PRN (13:37)
--- NOTE | 2018-02-27 15:27 | GCON ---
CRITICAL CARE CONSULTATION DATE OF CONSULTATION: 02/27/2018 HISTORY OF PRESENT ILLNESS: This patient is a 27-year-old male with a history of hepatitis C, IV shawnee g abuse who was admitted on the 02/26/18 with pneumatosis, abdominal pain, and mental status changes. He had used heroin earlier in the day and also uses occasional methamphetamine. Because of his abdomi nal pain, a CT scan was performed that showed portal vein air, as well as pneumatosis and diffuse bow el dilatation, as well as gastric dilatation suggesting a small bowel obstruction. He became increasi ngly more somnolent in the emergency department requiring Narcan and was thought to be in withdrawal, started on an opiate withdrawal protocol. He continued to require sedation for his ongoing agitation , was brought to the ICU, and put on a Precedex drip. He was evaluated by Surgery and determined that a surgical intervention was not required. REVIEW OF SYSTEMS: Otherwise negative. PAST MEDICAL HISTORY: Includes: 1. Hepatitis C. 2. IV drug abuse. 3. Endocarditis in the past. PAST SURGICAL HISTORY: None. SOCIAL HISTORY: Denies any alcohol. Does smoke and use drugs as described, and also has homelessness listed as an issue. FAMILY HISTORY: Noncontributory. CURRENT MEDICATIONS: Include Librium, Catapres, Precedex, Valium, Lovenox, hydroxyzine, Toradol, lac tated Ringer's, Zofran Protonix, Zosyn, Phenergan. PHYSICAL EXAM: VITAL SIGNS: For me, he had a T-max of 101 5 this morning. Blood pressure 112/54, hea rt rate 70, respirations 30, oxygen saturation 99% on 2 L. GENERAL: He was markedly somnolent and did not respond to questions. HEENT: His pupils are equally round and reactive to light. Nonicteric and noninjected. Mucous membranes moist without erythema or exudate. NECK: Supple without adenopathy or j ugular vein distention. RESPIRATORY: Breath sounds were clear to auscultation bilaterally without whe ezes, rubs, or rales. HEART: Regular rate and rhythm without murmurs, rubs, or gallops. ABDOMEN: Soft , nontender, nondistended without hepatosplenomegaly. EXTREMITIES: No clubbing, cyanosis, or edema. S KIN: Warm and dry without evidence of rash. NEUROLOGIC: Appeared to be grossly nonfocal. OBJECTIVE DATA: Includes a white count of 16 on arrival, down to 10.3 today, hematocrit 39, platelet s 225. Arterial blood gas was drawn at 8:30 this morning showing a pH 7.45, pCO2 of 35, pO2 55, sat 8 7%, bicarb 23, that was on 2 L. Basic metabolic panel was fairly unremarkable. LFTs were elevated on arrival in the 200s and have been slowly coming down to an AST of 38 and an ALT of 109 with alkaline phosphatase of 56, total bilirubin of 0.4. Albumin was 2.6. Lipase was low. His GI panel grew norovir us. His abdominal CT is as described above. ASSESSMENT/PLAN: 1. Bowel obstruction with some pneumatosis, likely related to underlying ileus from his chronic opia te use. He appears to be relatively stable. His drop in his white count is certainly encouraging and should remain on antibiotics for now. He does have some intravenous access issues. He is difficult to get peripheral access and the only access currently is in his foot. I suggested a double-lumen PICC line, which is currently pending. 2. Opiate withdrawal. He appears to be relatively stable from that point and probably too sedated at this point. We will try to back off on his Precedex drip. 3. His dyspnea is probably related to his withdrawal. His chest x-ray is negative. There is no clear CO2 issue, though his oxygenation could be better. /[id number]/MODL
--- NOTE | 2018-02-27 23:44 | CPEKG ---
Test Reason : OPEN Blood Pressure : / mmHG Vent. Rate : 077 BPM Atrial Rate : 077 BPM P-R Int : 138 ms QRS Dur : 095 ms QT Int : 586 ms P-R-T Axes : 045 -13 -58 degrees QTc Int : 664 ms Sinus rhythm Nonspecific T abnormalities, lateral leads Confirmed by Dante Hrarell ([id number]) on 02/27/2018 11:43:53 PM Referred By: Confirmed By:Dante Harrell
[2018-02-28] MEDS: KETOROLAC 30 MG/1 ML SDV IVP SCH ×3 (00:54→11:55)
[2018-02-28] MEDS: ACETAMINOPHEN 500 MG TAB PO SCH ×2 (00:54→08:53)
[2018-02-28] MEDS: PIPERACILLIN/TAZO 3.375 GM/DEX 50 ML IV SCH ×3 (03:48→13:15)
[2018-02-28] MEDS: DEXMEDETOMIDINE HCL 400 MCG in NS 100 ML IV SCH (04:59)
[2018-02-28] MEDS: LR 1,000 ML IV SCH (08:50)
[2018-02-28] MEDS: PANTOPRAZOLE SODIUM 40 MG TAB PO SCH (08:53)
[2018-02-28] MEDS: ENOXAPARIN 40 MG/0.4 ML SYR SC SCH (09:00)
[2018-02-28 11:26] VITALS: BP 105/54
--- NOTE | 2018-02-28 12:24 | ASMTCMCOM ---
CM Note CM Note Notes: Met with patient. He says he wants to go to the [facility] ([facility] program upon d/c. I spoke with his longtime [facility] therapist - Genoveva Pendleton [phone] - who is trying to help with discharge planning. [facility] is opening a new Suboxone clinic and she would like to get patient over to the [facility] so he can have long-term/withdrawal monitoring and participate in the program. She was relieved to know that he's here; his whereabouts had been unknown for some time. Patient is also concerned about warrants for his arrest and asked me to look into this; however, I asked him to follow up on this himself. He will also communicate directly with Genoveva meeks: discharge planning. Case Management will follow. Date Signed: 02/28/2018 12:23 PM Electronically Signed By:Cherelle Grajeda RN
--- NOTE | 2018-02-28 13:04 | WOCRNPDOC ---
WOCRAime Advanced Assessment Note - Skin Integrity Problem, Advanced Assess Left Anterior Ankle Pressure Injury Dressing Type: Allevyn Life Dressing Description: Clean/Dry, Intact Closure Description: Approximated Integumentary Issue Intervention: Visualized Under Dressing Emelina Wound Tissue: Intact Wound Bed Color: Purple, Red Wound Edges: Attached, Well Defined Site Measurement - Head-to-Toe Length X Width X Depth (cm): 1x0.5xDTI Pressure Injury Stage: Deep Tissue Injury (DTI) Pressure Injury Present on Admit: No Skin Integrity Problem Comment: Patient resting in bed and gives me permission to look at the wound on his ankle. Per RN Bette, who requested wound care involvement, this site was used for IV access and was wrapped with coban. Wound currently covered with Allevyn Life dressing. Dressing pulled back to reveal small wound with deep red and purple base. At this point, the skin remains intact but this wound represents a DTI (deep tissue injury) caused by a medical social consultant. Wound care will round again next week.
--- NOTE | 2018-02-28 15:34 | PDINTPN ---
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 Hi sCT showed pneumotosis and paralytic ileus with gastric and small bowel distension. A GI PCR panel revealed Norovirus and he was started on the COWS protocol for opiates. He was fairly stable until today when a friend was apparently caught providing injection drugs in his room. Police were notified (apparently had a warrant for arrest). * Pneumotosis/SBO/ileus likely related to opiate abuse. No indication for surgical intervention. Second CT without change except pulmonary consolidation. Remains on Zosyn with negative blood cultures to date. Slight bump in wbc from 10-13. * Hypoxemia- likely related to atelectasis given abdominal process. no clinical signs of PNA and covered well with Zosyn regardless. * LFTs improving * Opiate abuse- precedex has been off. Treatment is largely supportive. N/V related to this and treated with zofran 02/28/18 15:34 Subjective: no complaints Objective: Vital Signs Temp Pulse Resp BP Pulse Ox 36.9 C 60 32 H 105/54 L 97 02/28/18 08:00 02/28/18 11:25 02/28/18 11:25 02/28/18 11:25 02/28/18 11:25 Laboratory Results 02/28/18 03:55 02/28/18 03:55 02/27/18 02/28/18 03/01/18 05:59 05:59 05:59 Intake Total 1653.5 3067.1 Output Total 600 1400 Balance 1053.5 1667.1 Physical Exam - Physical Exam General Appearance: alert, no apparent distress EENT: PERRL/EOMI Neck: supple Respiratory: lungs clear, normal breath sounds, decreased breath sounds, No respiratory distress, No accessory muscle use Cardiac/Chest: normal peripheral pulses, regular rate, rhythm, No edema Abdomen: non-tender, soft, No distended Skin: normal color, warm/dry, No cyanosis Lymphatic: no adenopathy Extremities: No pedal edema Neuro/Psych: alert, normal mood/affect, oriented x 3 ICD10 Worksheet Patient Problems: Problems Problem Status Onset Abdominal pain Acute Heroin abuse Acute Nausea and vomiting Acute Pneumatosis of intestines Acute Small bowel obstruction Acute Transaminitis Acute
--- NOTE | 2018-03-12 18:50 | GDS ---
[f rep st] [facility] CONSULTS: Interventional Radiology, General Surgery, Pulmonary Medicine/ administrative personal assistant. PROCEDURES: 1. Chest x-ray on the day of admission: No acute processes. 2. Abdominal CT on the day of admission: Marked thickening of the gastric mucosa with pneumatosis and portal vein gas, severe dilation of stomach and proximal bowel. 3. Chest x-ray, 02/27/2018: Right lower lobe pneumonia. 4. Abdominal CT, 02/27/2018: Bilateral lower lobe consolidation, pneumonia, diffuse small bowel ileus, moderate free fluid in the pelvis 5. PICC line insertion, 02/27/2018. HISTORY AND PHYSICAL: Please see previously dictated note by Dr. Mccarty. ADMISSION DIAGNOSES: 1. Acute abdominal pain, nausea, vomiting. 2. Heroin use. 3. Pneumatosis of intestines. 4. Transaminitis. 5. Hepatitis C. 6. History of endocarditis. DISCHARGE DIAGNOSES: 1. Acute abdominal pain, nausea, vomiting, + norovirus infection. 2. Heroin use. 3. Pneumatosis of intestines. 4. Transaminitis. 5. Hepatitis C. 6. History of endocarditis. 7. Pneumonia. HOSPITAL COURSE: The patient was brought into the emergency department by ambulance because of abdominal pain, nausea, and vomiting. He admits to active heroin use and has a history of methamphetamine use. In the emergency department, he was evaluated with abdominal CT, results above. He was quite somnolent in in the emergency department and Narcan was administered. CBC showed an elevated white count of 16.1 with a left shift, normal lactic acid, elevated AST/ALT. He was admitted to the hospital because of ongoing abdominal pain/nausea/ vomiting, requiring IV antiemetics and for further evaluation. He was given IV fluid and made n.p.o. He was placed on opiate withdrawal protocol and General Surgery was asked to consult. General Surgery did not think he had a surgical abdomen, and recommended ongoing conservative management. A GI PCR was psitive for norovirus and he was placed on contagious precautions. He had initially been started on antibiotics, but those were discontinued. He was noted to have an elevated temperature of 101.2 on the 16th at midnight. He had a blood culture drawn, which returned negative. He was mildly hypoxic and was continued on 2 L of O2 throughout his stay. He had a repeat chest x-ray described above, which showed pneumonia and he was restarted on antibiotic, IV Zosyn. On the night of the , he was noted to become increasingly agitated and required transfer to the ICU for Precedex drip and Ativan. At that point, Pulmonary Care/[employer]ant Officer was asked to consult in his management also. He continued with COWS protocol, along with IV and p.o. medications. IV access was difficult and a PICC line was placed as above. He was not started on any long-acting opioids as he was not interested in outpatient treatment. He was felt to meet criteria for sepsis with tachypnea, fever, and leukocytosis. He was given IV resuscitation and electrolytes were followed closely. Repeat CT scan was done because of complaints about worsening abdominal pain, but was noted to be essentially unchanged as above. On the day of discharge, I was called to the ICU by the attending RN because of concern that a friend of his had brought in drugs, which he used IV access to give to himself. [facility] was notified, along with [facility]. At that point, he had been afebrile since 02/26/2018, he was able to the eat and drink, although he was having mild ongoing nausea, vomiting, and diarrhea (consistent with known norovirus). He no longer had signs of sepsis, and in consultation with the administrative personal assistant, it was determined that he could be discharged into the custody of the police who were going to take him to custodial and continue with po antibiotics for pneumonia. DISCHARGE MEDICATIONS: Augmentin 875 mg twice a day; Librium 25 to 50 mg t.i.d. as needed #30 prescription was written; clonidine 0.1 mg every 4 hours # 30, prescription was written; diazepam 5 mg 1 tab p.o. q.6 hours. as needed #10 , prescription was written; hydroxyzine 25 to 50 mg p.o. q.6 hours as needed # 30 prescription was written; loperamide 2 to 4 mg as needed #30 was written; Protonix 40 mg p.o. daily #10 was written. DISCHARGE INSTRUCTIONS: He is considered to be medically stable and able to go to the custodial as long as he is able to receive/take all the medications as prescribed above. It was included on his discharge paperwork that he does have an active Norovirus infection, and that he would need to remain in his own cell with own toilet until no longer having any diarrhea to decrease contagiousness. It was requested that an appointment with primary care provider be scheduled prior to his release from the custodial. It was requested that he start oral Augmentin in the morning following discharge as he had been given 2 doses of IV antibiotics on the day of discharge. Police were reminded to return him to the emergency department if he had any worsening symptoms or other concerns. /[id number]/MODL MTDD
== END 2018-02-28 14:45 | DRG 249 ==
LOC: EDUNIT# → INTOOBSV 15:13 → F3E 16:58 → OBSVTOIN 02-26 15:41 → F2N 02-26 23:06
PROVIDERS: ADMIT Surgery; ATTEND Family Medicine
PROC: 02HV33Z Insertion of Infusion Device into Superior Vena Cava, Percutaneous Approach (ICD-10-PCS; principal; 2018-02-27)
DX: A08.11 Acute gastroenteropathy due to Norwalk agent (principal); K63.89 Other specified diseases of intestine; J18.9 Pneumonia, unspecified organism; F11.23 Opioid dependence with withdrawal; K59.8 Other specified functional intestinal disorders; L89.529 Pressure ulcer of left ankle, unspecified stage; B19.20 Unspecified viral hepatitis C without hepatic coma; R09.02 Hypoxemia; Z59.0 Homelessness
CPT/HCPCS: 82435-PO; 82565-PO; 82947-PO; 84132-PO; 84295-PO; 84520-PO; 85014-ER; 96365; C1751; C1769; G0378; J0694; J1650; J1885; J2060; J2310; J2370; J2405; J2543; J2550; J2704; J3010; J3360; Q9967

== ENCOUNTER 2018-02-28 17:43 | Emergency (ER) | payer MEDICAID ==
--- NOTE | 2018-02-28 17:51 | EDPHY ---
H & P Time Seen by Provider: 02/28/18 17:49 HPI/ROS: CHIEF COMPLAINT: Vomiting and low blood pressure HISTORY OF PRESENT ILLNESS: Patient was discharged today from intensive care unit after having being mid to for norovirus with paralytic ileus and pneumatosis. There was some issue with illicit injection drugs in his room per the therapeutic program worker progress note from today, and he was discharged to halfway but then brought directly here because his blood pressure was 88 and he was vomiting and had diarrhea. Patient says he still has abdominal pain vomiting and diarrhea. Says symptoms are moderate and worse with oral intake. Not associated with fever or chills or hematemesis or coffee-ground emesis or melena. REVIEW OF SYSTEMS: Eye: no change in vision ENT: no sore throat Cardiac: no chest pain or syncope Pulmonary: no cough or SOB Abdomen: HPI Musculoskeletal: no back pain Skin: no rash Neuro: Feels very weak generally. Constitutional: Subjective fever and chills : no urinary symptoms A comprehensive 10 point review of systems is otherwise negative aside from elements mentioned in the history of present illness. PAST MEDICAL HISTORY: Includes norovirus, multi substance abuse, hepatitis, endocarditis Social history: Currently homeless General Appearance: Alert and conversant, cooperative. Eyes: No scleral icterus. ENT, Mouth: Dry mucous membranes. Respiratory: Normal respiratory effort, breath sounds equal, lungs are clear to auscultation. Cardiovascular: Regular rate and rhythm. Gastrointestinal: Abdomen is soft and non tender. No rebound or guarding. Neurological: Alert, face symmetric, normal motor and sensory in extremities. Skin: Warm and dry, no rashes. Musculoskeletal: No peripheral edema. Psychiatric: Not agitated. Emergency Department course/MDM: Recheck labs, normal saline hydration, 4 mg IV Zofran. Does not clinically have surgical abdomen on examination. I think it is unlikely that he has pancreatitis or bowel obstruction or intestinal perforation or ischemic bowel or appendicitis. Will check for metabolic abnormality with labs. 2015: Repeat evaluation. Patient is sleeping quietly with no vomiting or diarrhea in the ED. He is easily awakened for examination. Abdomen is soft and nontender at this time. Labs reviewed. I think he is stable to be discharged, in custody. He was discharged from the hospital today and he does not appear to have a need for emergent readmission. Smoking Status: Current every day smoker Constitutional: Initial Vital Signs Temperature (C) 36.4 C 01/18/19 17:51 Heart Rate 58 L 02/28/18 17:51 Respiratory Rate 18 02/28/18 17:51 Blood Pressure 121/72 H 02/28/18 17:51 O2 Sat (%) 98 02/28/18 17:51 O2 Delivery Mode Room Air Allergies/Adverse Reactions: No Known Allergies Allergy (Verified 02/28/18 17:51) Home Medications: Medication Instructions Recorded Amoxicillin/Clavulanate Pot 875 mg PO BID #14 tab 02/28/18 [Augmentin 875 MG TAB (*)] Diazepam [Valium 5 MG (*)] 5 mg PO Q6HRS PRN #10 tab 02/28/18 Loperamide HCl [Imodium 2 mg (*)] 2 - 4 mg PO PRN PRN #30 cap 02/28/18 Pantoprazole Sodium [Protonix 40mg 40 mg PO DAILY #10 tab 02/28/18 (*)] chlordiazePOXIDE [Librium 25 mg 25 - 50 mg PO TID PRN #30 cap 02/28/18 (*)] clonIDINE [Catapres (*)] 0.1 mg PO Q4HRS #30 tab 02/28/18 hydrOXYzine HCL [hydrOXYzine HCL 25 - 50 mg PO Q6HRS PRN #30 tab 02/28/18 (RX)] Medical Decision Making - Data Points Laboratory Results: Laboratory Results 02/28/18 18:22 02/28/18 18:22 02/28/18 02/28/18 18:22 18:22 WBC 16.13 10^3/uL H 10^3/uL (3.80-9.50) RBC 4.89 10^6/uL 10^6/uL (4.40-6.38) Hgb 14.3 g/dL g/dL (13.7-17.5) Hct 43.0 % % (40.0-51.0) MCV 87.9 fL fL (81.5-99.8) MCH 29.2 pg pg (27.9-34.1) MCHC 33.3 g/dL g/dL (32.4-36.7) RDW 13.1 % % (11.5-15.2) Plt Count 274 10^3/uL 10^3/uL (150-400) MPV 9.7 fL fL (8.7-11.7) Neut % (Auto) 73.4 % % (39.3-74.2) Lymph % (Auto) 18.4 % % (15.0-45.0) [place] % (Auto) 6.7 % % (4.5-13.0) Eos % (Auto) 0.6 % % (0.6-7.6) Baso % (Auto) 0.3 % % (0.3-1.7) Nucleat RBC Rel Count 0.0 % % (0.0-0.2) Absolute Neuts (auto) 11.85 10^3/uL H 10^3/uL (1.70-6.50) Absolute Lymphs (auto) 2.96 10^3/uL 10^3/uL (1.00-3.00) Absolute Monos (auto) 1.08 10^3/uL H 10^3/uL (0.30-0.80) Absolute Eos (auto) 0.10 10^3/uL 10^3/uL (0.03-0.40) Absolute Basos (auto) 0.05 10^3/uL 10^3/uL (0.02-0.10) Absolute Nucleated RBC 0.00 10^3/uL 10^3/uL (0-0.01) Immature Gran % 0.6 % % (0.0-1.1) Immature Gran # 0.09 10^3/uL 10^3/uL (0.00-0.10) Sodium 139 mEq/L mEq/L (135-145) Potassium 4.3 mEq/L mEq/L (3.5-5.2) Chloride 108 mEq/L mEq/L (97-110) Carbon Dioxide 25 mEq/l mEq/l (22-31) Anion Gap 6 mEq/L mEq/L (6-14) BUN 17 mg/dL mg/dL (7-23) Creatinine 0.9 mg/dL mg/dL (0.7-1.3) Estimated GFR > 60 Glucose 92 mg/dL mg/dL (70-100) Calcium 8.2 mg/dL L mg/dL (8.5-10.4) Total Bilirubin 0.6 mg/dL mg/dL (0.1-1.4) Conjugated Bilirubin 0.5 mg/dL mg/dL (0.0-0.5) Unconjugated Bilirubin 0.1 mg/dL mg/dL (0.0-1.1) AST 37 IU/L IU/L (17-59) ALT 90 IU/L H IU/L (21-72) Alkaline Phosphatase 89 IU/L IU/L (38-126) Total Protein 6.0 g/dL L g/dL (6.3-8.2) Albumin 3.2 g/dL L g/dL (3.5-5.0) Lipase 167 IU/L IU/L (23-300) Medications Given: Discontinued Medications Sodium Chloride (Ns) 1,000 mls @ 0 mls/hr IV EDNOW ONE; Wide Open PRN Reason: Protocol Stop: 02/28/18 18:02 Last Admin: 02/28/18 18:46 Dose: 1,000 mls Ondansetron HCl (Zofran) 4 mg IVP EDNOW ONE Stop: 02/28/18 18:02 Last Admin: 02/28/18 18:49 Dose: 4 mg Departure - Departure Disposition: Law Enforcement/Court/Halfway Clinical Impression: Nausea and vomiting Qualifiers: Vomiting type: unspecified Vomiting Intractability: non-intractable Qualified Code(s): R11.2 - Nausea with vomiting, unspecified Condition: Good Referrals: NONE *PRIMARY CARE P,. [Primary Care Provider] - As per Instructions
[2018-02-28] MEDS ORDERED: ONDANSETRON 4 MG/2 ML VIAL IVP ONE (18:01)
[2018-02-28] MEDS ORDERED: NS 1,000 ML IV ONE (18:01)
[2018-02-28 18:31] LABS: PLATELET COUNT 274 10^3/uL (150-400)
[2018-02-28 19:13] VITALS: BP 99/76
== END 2018-02-28 20:54 ==
LOC: EDUNIT#
DX: R11.2 Nausea with vomiting, unspecified (principal); I95.9 Hypotension, unspecified; E86.9 Volume depletion, unspecified; Z59.0 Homelessness
CPT/HCPCS: 96374; J2405